=== PATIENT | male | born 1955 | race Caucasian/White ===

== ENCOUNTER 2021-03-06 11:48 | Emergency (ER) | payer MEDICARE, OTHER ==
[~2021-03-06] VITALS: Ht 152.4 cm; Wt 61.2 kg
[2021-03-06 11:54] VITALS: BP 191/89
[2021-03-06] MEDS ORDERED: MORPHINE SULFATE INJ 2 MG/ML DISP.SYRIN ONE (12:05)
[2021-03-06] MEDS ORDERED: MORPHINE SULFATE INJ 4 MG/ML DISP.SYRIN ONE (12:05)
[2021-03-06] MEDS ORDERED: MORPHINE SULFATE INJ 4 MG/ML DISP.SYRIN IM ONE (12:30)
--- NOTE | 2021-03-06 12:40 | NUR ---
Patient discharged to home in stable condition. Written and verbal after care instructions given. Patient verbalizes understanding of instruction. Pt ambulatory using a wheelchair. Homeless waiver signed by the patient. provided with a meal and tap card. resources also given to patient
[2021-03-07] MEDS ORDERED: MORP30TA PO (17:09)
[2021-03-07] MEDS ORDERED: MORP60TA4 PO (17:09)
[2021-03-07] MEDS ORDERED: OXYC-128 PO (17:09)
== END 2021-03-06 12:47 | disposition home or self-care (01) ==
LOC: ER 11:55
DX: G89.29 Other chronic pain (principal); Z59.0 Homelessness; I10 Essential (primary) hypertension; Z89.512 Acquired absence of left leg below knee; Z89.511 Acquired absence of right leg below knee; Z88.6 Allergy status to analgesic agent
CPT/HCPCS: 96372; 99283; J2270 ×2

== ENCOUNTER 2021-03-06 23:20 | Emergency (ER) | payer MEDICARE, MEDICAID ==
[~2021-03-06] VITALS: Ht 152.4 cm; Wt 61.2 kg
[2021-03-06 23:20] VITALS: BP 165/90
[2021-03-07] MEDS ORDERED: MORP30TA PO (17:09)
[2021-03-07] MEDS ORDERED: OXYC-128 PO (17:09)
[2021-03-07] MEDS ORDERED: MORP60TA4 PO (17:09)
== END 2021-03-06 23:35 | disposition home or self-care (01) ==
LOC: ER 23:25
DX: G89.29 Other chronic pain (principal); I10 Essential (primary) hypertension; Z88.6 Allergy status to analgesic agent; Z89.512 Acquired absence of left leg below knee; Z89.511 Acquired absence of right leg below knee

== ENCOUNTER 2021-03-07 12:07 | Emergency (ER) | payer MEDICARE, MEDICAID ==
[~2021-03-07] VITALS: Ht 152.4 cm; Wt 64.4 kg
--- NOTE | 2021-03-07 12:15 | NUR ---
Patient came in to the er c/o +SI"i want to kill myself by cutting my wrist", LAC on the left wrist. On room air, breathing evenly and unlabored. Kept comfortable, will continue to monitor accordingly.
--- NOTE | 2021-03-07 12:20 | NUR ---
called security for wanding.
--- NOTE | 2021-03-07 12:25 | NUR ---
security at bedside for wanding.
--- NOTE | 2021-03-07 12:40 | NUR ---
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
[2021-03-07 13:02] LABS: BASOPHILS % (AUTO) 0.5 % (0.0-2.0); EOSINOPHILS % (AUTO) 2.5 % (0.0-6.0); HEMATOCRIT 39 % (39-51); HEMOGLOBIN 13.5 g/dL (13.5-17.5); LYMPHOCYTES # (AUTO) 0.8 K/uL (0.8-4.8); LYMPHOCYTES % (AUTO) 12.5 % (20.0-44.0); MEAN CORPUSCULAR HGB CONC 34 g/dl (31.0-36.0); MEAN CORPUSCULAR VOLUME 92 fL (80-96); MONOCYTES # (AUTO) 0.4 K/uL (0.1-1.30); MONOCYTES % (AUTO) 5.9 % (2.0-12.0); NEUTROPHILS # (AUTO) 5.1 K/uL (1.8-8.9); NEUTROPHILS % (AUTO) 78.6 % (43.0-81.0); PLATELET COUNT (AUTO) 158 K/uL (150-450); RED BLOOD CELL COUNT(AUTO) 4.27 MIL/uL (4.5-6.0); WHITE BLOOD COUNT (AUTO) 6.5 K/uL (4.3-11.0)
[2021-03-07 13:12] LABS: CALCIUM, SERUM 9.5 mg/dL (8.5-10.1); CARBON DIOXIDE 27 mmol/L (21-32); CHLORIDE 104 mmol/L (98-107); CREATININE 0.5 mg/dL (0.6-1.3); GLUCOSE 135 mg/dL (74-106); POTASSIUM 3.9 mmol/L (3.5-5.1); SODIUM SERUM 141 mmol/L (136-145); UREA NITROGEN, BLOOD 12 mg/dL (7-18)
[2021-03-07 13:18] LABS: ACETAMINOPHEN 0 ug/ml (10-30); ALANINE AMINOTRANSFERASE 25 U/L (12-78); ALBUMIN 4.5 g/dL (3.4-5.0); ALCOHOL, BLOOD < 3 mg/dL (0-0); ALKALINE PHOSPHATASE 92 U/L (46-116); ASPARTATE AMINOTRANSFERASE 22 U/L (15-37); BILIRUBIN,DIRECT 0.3 mg/dL (0.0-0.2); TOTAL PROTEIN, SERUM 7.2 g/dL (6.4-8.2)
[2021-03-07] MEDS ORDERED: MORPHINE SULFATE INJ 4 MG/ML DISP.SYRIN ONE (13:19)
[2021-03-07] MEDS: MORPHINE SULFATE INJ 2 MG/ML DISP.SYRIN IM ONE (13:22)
[2021-03-07] MEDS ORDERED: OLANZAPINE 10 MG VIAL IM ONE (14:10)
--- NOTE | 2021-03-07 14:10 | NUR ---
DR. MARTINEZ SPEAKING WITH DR. ALLEN
[2021-03-07] MEDS: OLANZAPINE 10 MG VIAL IM ONE (14:15)
--- NOTE | 2021-03-07 14:32 | NUR ---
pt fighting with staff in and out done found a pocket knife . restraints applied to wrists . ua sent to lab
--- NOTE | 2021-03-07 14:43 | NUR ---
ART IS WITH PT
[2021-03-07 15:02] LABS: BILIRUBIN,URINE NEGATIVE (NEGATIVE); COLOR,URINE YELLOW (YELLOW); LEUKOCYTE ESTERASE ,URINE NEGATIVE (NEGATIVE); NITRITE, URINE NEGATIVE (NEGATIVE); PROTEIN,URINE 30 mg/dl (NEGATIVE); UGLUCOSE NEGATIVE (NEGATIVE)
[2021-03-07 15:12] LABS: BACTERIA,URINE None seen /HPF (None Seen); RBC,URINE 0-2 /HPF (0-2); SQUAMOUS EPITHELIAL CELL,UR 0-2 /HPF (None Seen); WBC,URINE 0-2 /HPF (0-3)
[2021-03-07 15:13] LABS: URINE AMORPHOUS PHOSPHATES Many /HPF (None Seen)
[2021-03-07 15:17] LABS: ALBUMIN 4.2 g/dL (3.4-5.0); BILIRUBIN,DIRECT 0.2 mg/dL (0.0-0.2); BILIRUBIN,TOTAL 1.1 mg/dL (0.2-1.0); TOTAL PROTEIN, SERUM 7.7 g/dL (6.4-8.2)
[2021-03-07] MEDS ORDERED: LORAZEPAM INJ 2 MG/ML VIAL ONE (16:02)
[2021-03-07] MEDS ORDERED: diphenhydrAMINE HCL 50 MG/ML VIAL ONE (16:02)
[2021-03-07] MEDS: diphenhydrAMINE HCL 50 MG/ML VIAL IM ONE (16:12)
[2021-03-07] MEDS: LORAZEPAM INJ 2 MG/ML VIAL IM ONE (16:12)
[2021-03-07] MEDS ORDERED: MORP30TA PO (17:09)
[2021-03-07] MEDS ORDERED: OXYC-128 PO (17:09)
[2021-03-07] MEDS ORDERED: MORP60TA4 PO (17:09)
[2021-03-07] MEDS ORDERED: BUPRENORPHINE HCL 8 MG TAB.SUBL SL ONE (19:28)
[2021-03-07] MEDS: BUPRENORPHINE HCL 8 MG TAB.SUBL SL ONE (19:34)
--- NOTE | 2021-03-07 20:29 | NUR ---
PT PROVIDED WITH A MEAL
--- NOTE | 2021-03-07 20:43 | NUR ---
FACESHEET AND CLINICALS FAXED TO [facility]TA[facility]. [phone]
--- NOTE | 2021-03-07 20:45 | NUR ---
CLINICAL REPORT GIVEN TO JOZEF ROWLAND.
--- NOTE | 2021-03-07 20:46 | NUR ---
PT IS ACCPEPTED AT [facility] BY DR. SHRESTHA [id number] [place] [id number] # FOR REPORT: [phone]
--- NOTE | 2021-03-07 20:53 | NUR ---
[facility] 30 MIN FROM NOW
[2021-03-07] MEDS ORDERED: CLONIDINE HCL 0.1 MG TABLET ONE (21:10)
[2021-03-07] MEDS: CLONIDINE HCL 0.1 MG TABLET PO ONE (21:14)
--- NOTE | 2021-03-07 21:22 | NUR ---
CALLED [facility] FOR REPORT. PT IS STILL NOT ACCEPTED AT THIS TIME. CASE IS STILL BEING REVIEW. TAYE WILL BE CALLING ONCE PT IS APPROVED FOR ADMISSION
--- NOTE | 2021-03-07 22:21 | NUR ---
[facility]TA[facility], TAYE: [phone] PER TAYE THE ACCEPTANCE WAS PLACED ON HOLD DUE TO PT'S PAST MEDICAL HX WHICH NEEDS TO BE CLARIFIED BY THE NURSING [facility]. TAYE WILL CALL US BACK W/ UPDATES
--- NOTE | 2021-03-08 07:35 | NUR ---
ASSESSED PT ON BED AWAKE AND ALERT NOT IN RESPIRATORY DISTRESS, V/S STABLE, KEPT RESTED AND COMFORTABLE. SITTER AT BEDSIDE FOR 1 TO 1. WILL CONTINUE TO MONITOR.
--- NOTE | 2021-03-08 07:54 | NUR ---
LORENA BLOOM DNP AT BEDSIDE FOR EVAL.
[2021-03-08] MEDS ORDERED: [UNRECOGNIZED DRUG - REMARK] PO (07:55)
[2021-03-08] MEDS ORDERED: GABA-532 PO (07:55)
--- NOTE | 2021-03-08 10:54 | NUR ---
CALLED TRANSPORT WITH [facility] ETA IS 30 MINS
[2021-03-08 11:45] VITALS: BP 128/71
--- NOTE | 2021-03-08 11:47 | NUR ---
patient picked up by private ambulance in no distress going to [facility].
== END 2021-03-08 11:47 ==
LOC: ER 12:13
DX: R45.851 Suicidal ideations (principal); S61.512A Laceration without foreign body of left wrist, initial encounter; X78.9XXA Intentional self-harm by unspecified sharp object, initial encounter; Y92.89 Other specified places as the place of occurrence of the external cause; F11.23 Opioid dependence with withdrawal; T40.2X5A Adverse effect of other opioids, initial encounter; Z59.0 Homelessness; Z89.512 Acquired absence of left leg below knee; Z89.511 Acquired absence of right leg below knee; I10 Essential (primary) hypertension; Z95.1 Presence of aortocoronary bypass graft; F17.210 Nicotine dependence, cigarettes, uncomplicated; F29 Unspecified psychosis not due to a substance or known physiological condition; G89.4 Chronic pain syndrome; Z91.14 Patient's other noncompliance with medication regimen; Z20.822 Contact with and (suspected) exposure to COVID-19
CPT/HCPCS: 36415; 80048; 80076 ×2; 80143; 80307; 80320 ×2; 81001; 85025; 87081; 87426; 96372 ×2; 99285; J1200; J2060; J2270; J3490; C9803; G0480